=== PATIENT | male | born 1980 | race Caucasian/White ===

== ENCOUNTER 2018-09-16 12:41 | Emergency (ER) | payer SELFPAY ==
[~2018-09-16] VITALS: Ht 188 cm; Wt 81.8 kg
[2018-09-16 12:45] VITALS: BP 109/72
== END 2018-09-16 15:10 | disposition home or self-care (01) ==
LOC: EMS 12:46
DX: S62.610A Displaced fracture of proximal phalanx of right index finger, initial encounter for closed fracture (principal); F17.210 Nicotine dependence, cigarettes, uncomplicated; X58.XXXA Exposure to other specified factors, initial encounter; Y93.89 Activity, other specified; Y92.89 Other specified places as the place of occurrence of the external cause; Y99.8 Other external cause status
CPT/HCPCS: 99406